=== PATIENT | male | born 1990 | race Caucasian/White ===

== ENCOUNTER 2025-01-17 15:01 | Emergency (ER) | payer OTHER ==
[2025-01-17 15:08] VITALS: TEMP 97.4
--- NOTE | 2025-01-17 15:42 | ED ---
General Adult HPI - General Source: patient, RN notes reviewed, old records reviewed Mode of arrival: ambulatory Limitations: no limitations <Jatinder Collins - Last Filed: 01/17/25 15:35> - General Source: patient, RN notes reviewed Mode of arrival: ambulatory Limitations: no limitations - History of Present Illness -: days(s) Severity scale (1-10): 0 Consistency: constant Improves with: none Worsens with: none Associated Symptoms: denies other symptoms Treatments Prior to Arrival: none <Jerry Tiwari - Last Filed: 01/17/25 17:46> - General Chief complaint: Abdominal Pain Stated complaint: abd pain, blood in urine Time Seen by Provider: 01/17/25 15:22 - History of Present Illness Initial comments: Patient is a 34-year-old male who presents emergency department complaining of abdominal pain. Presents from [facility] where he is present for alcohol as well as polysubstance abuse. He has been there since Saturday. That is when he began experiencing abdominal pain. Recently completed course of antibiotics for UTI. Is still having symptoms he states. His symptoms encomp ass dysuria that is a sharp sensation when he is urinating with some hematuria. Denies any pus or concern for STDs. Denies any diarrhea or constipation. He denies any flank or back pain but is complaining of epigastric abdominal discomfort since Saturday. Endorses a little bit of nausea but no significant emesis. No chest pain or shortness of breath. No fevers or chills. No abdominal surgeries in the past. Presents for further evaluation at this time.Patient does have a history of hepatitis C. States he was fully treated. (Jatinder Collins) This is a 34 male to ER for evaluation of hematuria with recent treatment for UTI (Jerry Tiwari) - Related Data Allergies Allergy/AdvReac Type Severity Reaction Status Date / Time No Known Allergies Allergy Verified 01/17/25 15:07 Review of Systems ROS Other: All systems not noted in ROS Statement are negative. <Jatinder Collins - Last Filed: 01/17/25 15:35> ROS Other: All systems not noted in ROS Statement are negative. <Jerry Tiwari - Last Filed: 01/17/25 17:46> ROS Statement: Those systems with pertinent positive or pertinent negative responses have been documented in the HPI. Review of Systems: CONST: Denies fever EYES: Denies blurry vision ENT: Denies nasal congestion C/V: Denies Chest pain RESP: Denies shortness of breath GI: Endorses abdominal pain : Endorses dysuria SKIN: Denies rash. MSK: Denies joint pain. NEURO: Denies headache (Jatinder Collins) Past Medical History Additional Past Medical History / Comment(s): HEP C (curred) History of Any Multi-Drug Resistant Organisms: None Reported Past Surgical History: No Surgical Hx Reported Past Psychological History: Depression Smoking Status: Current every day smoker Past Alcohol Use History: Daily Past Drug Use History: Cocaine, Marijuana, Opiates <Jatinder Collins - Last Filed: 01/17/25 15:35> General Exam Limitations: no limitations <Jatinder Collins - Last Filed: 01/17/25 15:35> General appearance: alert, in no apparent distress Head exam: Present: atraumatic, normocephalic, normal inspection Eye exam: Present: normal appearance, PERRL, EOMI. Absent: scleral icterus, conjunctival injection, periorbital swelling ENT exam: Present: normal exam, mucous membranes moist Neck exam: Present: normal inspection. Absent: tenderness, meningismus, lymphadenopathy Respiratory exam: Present: normal lung sounds bilaterally. Absent: respiratory distress, wheezes, rales, rhonchi, stridor Cardiovascular Exam: Present: regular rate, normal rhythm, normal heart sounds. Absent: systolic murmur, diastolic murmur, rubs, gallop, clicks GI/Abdominal exam: Present: soft, normal bowel sounds. Absent: distended, tenderness, guarding, rebound, rigid Extremities exam: Present: normal inspection, full ROM, normal capillary refill. Absent: tenderness, pedal edema, joint swelling, calf tenderness Back exam: Present: normal inspection Neurological exam: Present: alert, oriented X3, CN II-XII intact Psychiatric exam: Present: normal affect, normal mood Skin exam: Present: warm, dry, intact, normal color. Absent: rash <Jerry Tiwari - Last Filed: 01/17/25 17:46> - General Exam Comments Initial Comments: General: Appears in no acute distress. No evidence of alcohol withdrawals. HEAD: Normal with no signs of head trauma. EYES: EOMI ENT: Hearing grossly intact, normal oropharynx. RESPIRATORY: Clear breath sounds bilaterally. No wheezes, rales, or rhonchi. C/V: Regular rate and rhythm. S1 and S2 auscultated, no edema, peripheral pulses 2+ and intact throughout ABD: Abdomen soft, nondistended. Tender to palpation in the epigastric region. No guarding. No rebound tenderness. No peritoneal signs. No CVA tenderness to percussion. No flank tenderness. EXT: Normal range of motion, no obvious deformity SKIN: No rashes or lesions observed on exposed skin. NEURO: Alert and oriented x 4. (Jatinder Collins) Course <Jerry Tiwari - Last Filed: 01/17/25 17:46> Vital Signs 01/17/25 15:03 Temperature 97.4 F L Pulse Rate 84 Respiratory 18 Rate Blood Pressure 161/84 - Reevaluation(s) Reevaluation #1: 01/17/25 17:46 Medical records reviewed (Jerry Tiwari) Reevaluation #2: 01/17/25 17:46 Patient in no acute distress encouraged to increase oral intake, water (Jerry Tiwari) Reevaluation #3: 01/17/25 17:46 Patient informed of results questions answered (Jerry Tiwari) Medical Decision Making <Jatinder Collins - Last Filed: 01/17/25 15:35> - Lab Data Result diagrams: 01/17/25 16:03 01/17/25 16:03 - Radiology Data Radiology results: report reviewed (Ultrasound renals and bladder gallbladder CT abdomen pelvis negative for acute disease), image reviewed <Jerry Tiwari - Last Filed: 01/17/25 17:46> - Medical Decision Making Was pt. sent in by a medical professional or institution (, PA, DOCUMENT PROCESSOR, urgent care, hospital, or [facility]...) When possible be specific @ -Sent by her [facility] to evaluate for dysuria, epigastric abdominal pain. Did you speak to anyone other than the patient for history (EMS, parent, family, police, friend...)? What history was obtained from this source @ -No Did you review nursing and triage notes (agree or disagree)? Why? @ -I reviewed and agree with nursing and triage notes Were old charts reviewed (outside hosp., previous admission, EMS record, old EKG, old radiological studies, urgent care reports/EKG's, [facility] records)? Report findings @ -No old charts were reviewed Differential Diagnosis (chest pain, altered mental status, abdominal pain women, abdominal pain men, vaginal bleeding, weakness, fever, dyspnea, syncope, headache, dizziness, GI bleed, back pain, seizure, CVA, palpatations, mental health, musculoskeletal)? @ -Differential Abdominal Pain Men: Appendicitis, cholecystitis, diverticulosis, ischemic bowel, pancreatitis, hepatitis, UTI, gastroenteritis, AAA, incarcerated hernia, bowel obstruction, constipation, inflammatory bowel, hepatitis, peptic ulcer disease, splenic infarction, perforated viscus, testicular torsion, this is not meant to be an all-inclusive list EKG interpreted by me (3pts min.). @ -None done X-rays interpreted by me (1pt min.). @ -None done CT interpreted by me (1pt min.). @ -None none U/S interpreted by me (1pt. min.). @ -Pending What testing was considered but not performed or refused? (CT, X-rays, U/S, labs)? Why? @ -None What meds were considered but not given or refused? Why? @ -None Did you discuss the management of the patient with other professionals (professionals i.e. , PA, DOCUMENT PROCESSOR, lab, RT, psych nurse, health social work professor, campus director, teacher, recreation officer, director of casework)? Give summary @ -No Was smoking cessation discussed for >3mins.? @ -No Was critical care preformed (if so, how long)? @ -No Were there social determinants of health that impacted care today? How? (Homelessness, low income, unemployed, alcoholism, drug addiction, transportation, low edu. Level, literacy, decrease access to med. care, nursing home, rehab)? @ -No Was there de-escalation of care discussed even if they declined (Discuss DNR or withdrawal of care, Hospice)? DNR status @ -No What co-morbidities impacted this encounter? (DM, HTN, Smoking, COPD, CAD, Cancer, CVA, ARF, Chemo, Hep., AIDS, mental health diagnosis, sleep apnea, morbid obesity)? @ -Polysubstance abuse Was patient admitted / discharged? Hospital course, mention meds given and route, prescriptions, significant lab abnormalities, going to OR and other pertinent info. @ -Patient presents with dysuria for over a week as well as epigastric abdominal pain for 3 days. Vitals are within acceptable limits. Presents from [facility]. No evidence of alcohol withdrawals. Patient be symptomatically with IV fluids, Zofran, Protonix, Toradol. We will obtain abdominal laboratory study workup. He was in agreement this plan. Ultrasound of the gallbladder as well as kidneys will be obtained. At this time is the end of my shift. Patient signed out to [facility] emergency department physician Dr. Tiwari Pending results of workup. Undiagnosed new problem with uncertain prognosis? @ -No Drug Therapy requiring intensive monitoring for toxicity (Heparin, Nitro, Insulin, Cardizem)? @ -No Were any procedures done? @ -No (Jatinder Collins) 34 male hematuria failed outpatient UTI coming from [facility] patient will be placed on IV antibiotics given antibiotics to cover significant diagnostic causes of UTI and patient can be discharged home (Jerry Tiwari) - Lab Data Lab Results 01/17/25 01/17/25 01/17/25 Range/Units 16:03 16:03 16:03 WBC 4.26 L (4.50-10.00) 10*3/uL RBC 3.98 L (4.40-5.60) 10*6/uL Hgb 13.6 (13.0-17.0) g/dL Hct 37.5 L (39.6-50.0) % MCV 94.2 (80.0-97.0) fL MCH 34.2 H (27.0-32.0) pg MCHC 36.3 (32.0-37.0) g/dL Plt Count 348 (140-440) 10*3/uL MPV 9.2 L (9.5-12.2) fL Immature Gran % (Auto) 0.2 % Neutrophils % 54.4 % Lymphocytes % 31.5 % Monocytes % 10.8 % Eosinophils % 1.9 % Basophils % 1.2 % Immature Gran # 0.01 (0.00-0.04) 10*3/uL Neutrophils # 2.32 (1.80-7.70) 10*3/uL Lymphocytes # 1.34 (0.90-5.00) 10*3/uL Monocytes # 0.46 (0.20-1.00) 10*3/uL Eosinophils # 0.08 (0.04-0.35) 10*3/uL Basophils # 0.05 (0.00-0.10) 10*3/uL PT 10.7 (10.0-12.5) sec INR 1.0 (<1.2) APTT 22.9 (22.0-30.0) sec Sodium (137-145) mmol/L Potassium (3.5-5.1) mmol/L Chloride (98-107) mmol/L Carbon Dioxide (22-30) mmol/L Anion Gap mmol/L BUN (9-20) mg/dL Creatinine (0.66-1.25) mg/dL Est GFR (CKD-EPI)AfAm (>60 ml/min/1.73 sqM) Est GFR (CKD-EPI)NonAf (>60 ml/min/1.73 sqM) Glucose (74-99) mg/dL Plasma Lactic Acid Bob (0.7-2.0) mmol/L Calcium (8.4-10.2) mg/dL Total Bilirubin (0.2-1.3) mg/dL AST (17-59) U/L ALT (4-49) U/L Alkaline Phosphatase (38-126) U/L Creatine Kinase (55-170) U/L Total Protein (6.3-8.2) g/dL Albumin (3.5-5.0) g/dL Amylase (30-110) U/L Lipase (23-300) U/L Urine Color Yellow Urine Appearance Turbid (Clear) Urine pH 7.0 (5.0-8.0) Ur Specific [place] 1.017 (1.001-1.035) Urine Protein Trace H (Negative) Urine Glucose (UA) Negative (Negative) Urine Ketones Negative (Negative) Urine Blood Moderate H (Negative) Urine Nitrite Negative (Negative) Urine Bilirubin Negative (Negative) Urine Urobilinogen 2.0 (<2.0) mg/dL Ur Leukocyte Esterase Trace H (Negative) Urine RBC 97 H (0-5) /hpf Urine WBC 19 H (0-5) /hpf Amorphous Sediment Occasional H (None) /hpf Urine Mucus Rare H (None) /hpf Serum Alcohol mg/dL 04/20/25 04/20/25 04/20/25 Range/Units 16:03 16:03 16:03 WBC (4.50-10.00) 10*3/uL RBC (4.40-5.60) 10*6/uL Hgb (13.0-17.0) g/dL Hct (39.6-50.0) % MCV (80.0-97.0) fL MCH (27.0-32.0) pg MCHC (32.0-37.0) g/dL Plt Count (140-440) 10*3/uL MPV (9.5-12.2) fL Immature Gran % (Auto) % Neutrophils % % Lymphocytes % % Monocytes % % Eosinophils % % Basophils % % Immature Gran # (0.00-0.04) 10*3/uL Neutrophils # (1.80-7.70) 10*3/uL Lymphocytes # (0.90-5.00) 10*3/uL Monocytes # (0.20-1.00) 10*3/uL Eosinophils # (0.04-0.35) 10*3/uL Basophils # (0.00-0.10) 10*3/uL PT (10.0-12.5) sec INR (<1.2) APTT (22.0-30.0) sec Sodium 137 (137-145) mmol/L Potassium 3.8 (3.5-5.1) mmol/L Chloride 99 (98-107) mmol/L Carbon Dioxide 32 H (22-30) mmol/L Anion Gap 6 mmol/L BUN 9 (9-20) mg/dL Creatinine 0.65 L (0.66-1.25) mg/dL Est GFR (CKD-EPI)AfAm >90 (>60 ml/min/1.73 sqM) Est GFR (CKD-EPI)NonAf >90 (>60 ml/min/1.73 sqM) Glucose 106 H (74-99) mg/dL Plasma Lactic Acid Bob 1.4 (0.7-2.0) mmol/L Calcium 9.6 (8.4-10.2) mg/dL Total Bilirubin 0.2 (0.2-1.3) mg/dL AST 40 (17-59) U/L ALT 65 H (4-49) U/L Alkaline Phosphatase 77 (38-126) U/L Creatine Kinase 109 (55-170) U/L Total Protein 6.1 L (6.3-8.2) g/dL Albumin 3.7 (3.5-5.0) g/dL Amylase 39 (30-110) U/L Lipase 120 (23-300) U/L Urine Color Urine Appearance (Clear) Urine pH (5.0-8.0) Ur Specific [place] (1.001-1.035) Urine Protein (Negative) Urine Glucose (UA) (Negative) Urine Ketones (Negative) Urine Blood (Negative) Urine Nitrite (Negative) Urine Bilirubin (Negative) Urine Urobilinogen (<2.0) mg/dL Ur Leukocyte Esterase (Negative) Urine RBC (0-5) /hpf Urine WBC (0-5) /hpf Amorphous Sediment (None) /hpf Urine Mucus (None) /hpf Serum Alcohol <10 mg/dL Disposition <Jatinder Collins - Last Filed: 01/17/25 15:35> Is patient prescribed a controlled substance at d/c from ED?: No Time of Disposition: 17:35 <Jerry Tiwari - Last Filed: 01/17/25 17:46> Clinical Impression: Abdominal pain, UTI (urinary tract infection), Hemorrhagic cystitis Disposition: HOME SELF-CARE Condition: Good Instructions (If sedation given, give patient instructions): Hematuria (ED), Urinary Tract Infection in Men (ED) Prescriptions: Doxycycline [Vibramycin] 100 mg PO BID 7 Days #14 capsule Referrals: None,Stated [Primary Care Provider] - 1-2 days
[2025-01-17] MEDS: KETOROLAC 15 MG/ML 1 ML VIAL IVP STA (15:56)
[2025-01-17] MEDS: PANTOPRAZOLE 40 MG/10 ML VIAL IVP STA (15:56)
[2025-01-17] MEDS: SODIUM CHLORIDE 0.9% 1,000 ML IV ONE ×2 (15:56→17:57)
[2025-01-17] MEDS: ONDANSETRON 4 MG/2 ML VIAL IVP STA (15:56)
[2025-01-17 16:12] LABS: Basophils # (A) 0.05 10*3/uL (0.00-0.10); Basophils % (A) 1.2 %; Eosinophils # (A) 0.08 10*3/uL (0.04-0.35); Eosinophils % (A) 1.9 %; HCT 37.5 % (39.6-50.0); HGB 13.6 g/dL (13.0-17.0); Lymphocytes # (A) 1.34 10*3/uL (0.90-5.00); Lymphocytes % (A) 31.5 %; MCH 34.2 pg (27.0-32.0); MCHC 36.3 g/dL (32.0-37.0); MCV 94.2 fL (80.0-97.0); Mean Platelet Volume 9.2 fL (9.5-12.2); Monocytes # (A) 0.46 10*3/uL (0.20-1.00); Monocytes % (A) 10.8 %; Neutrophils # (A) 2.32 10*3/uL (1.80-7.70); Neutrophils % (A) 54.4 %; Platelet Count 348 10*3/uL (140-440); RBC 3.98 10*6/uL (4.40-5.60); RDW 12.9 % (11.5-14.5); WBC 4.26 10*3/uL (4.50-10.00)
[2025-01-17 16:17] LABS: Amorphous Sediment,Urine Occasional /hpf; Appearance,Urine Turbid (Clear); Bilirubin,Urine Negative (Negative); Blood,Urine Moderate (Negative); Color,Urine Yellow; Glucose,Urine (UA) Negative (Negative); Ketones,Urine Negative (Negative); Leukocyte Esterase,Urine Trace (Negative); Mucus,Urine Rare /hpf; Nitrite,Urine Negative (Negative); Protein,Urine Trace (Negative); RBC,Urine 97 /hpf (0-5); Specific Gravity,Urine 1.017 (1.001-1.035); WBC,Urine 19 /hpf (0-5)
[2025-01-17 16:23] LABS: Partial Thromboplastin Time 22.9 sec (22.0-30.0); Prothrombin Time 10.7 sec (10.0-12.5)
[2025-01-17 16:26] LABS: ALT 65 U/L (4-49); AST 40 U/L (17-59); African American GFR (CKD) >90 (>60 ml/min/1.73 sqM); Albumin 3.7 g/dL (3.5-5.0); Alcohol <10 mg/dL; Alkaline Phosphatase 77 U/L (38-126); Amylase 39 U/L (30-110); Anion Gap 6 mmol/L; Blood Urea Nitrogen 9 mg/dL (9-20); Calcium 9.6 mg/dL (8.4-10.2); Carbon Dioxide 32 mmol/L (22-30); Chloride 99 mmol/L (98-107); Glucose 106 mg/dL (74-99); Lipase 120 U/L (23-300); Non-African American GFR(CKD) >90 (>60 ml/min/1.73 sqM); Potassium 3.8 mmol/L (3.5-5.1); Sodium 137 mmol/L (137-145); Total Bilirubin 0.2 mg/dL (0.2-1.3); Total Protein 6.1 g/dL (6.3-8.2)
--- NOTE | 2025-01-17 17:15 | US ---
EXAMINATION TYPE: US abd limited kidneys/bladder DATE OF EXAM: 01/17/2025 COMPARISON: NONE CLINICAL INDICATION: Male, 34 years old with history of epigastric abd pain; abd pain with gross amish turia x 3 days, patient just went to rehab for etoh 2 days ago TECHNIQUE: Grayscale and color Doppler imaging of the right upper quadrant including the kidneys and urinary bladder. FINDINGS: EXAM MEASUREMENTS: Liver Length: 16.1 cm Gallbladder Wall: 0.3 cm CBD: 0.3 cm Right Kidney: 9.4 x 5.2 x 5.1 cm Left Kidney: 12.8 x 4.4 x 4.7 cm Pancreas: wnl Liver: Increased parenchymal echogenicity. Gallbladder: wnl CBD: wnl Right Kidney: wnl Left Kidney: Likely duplicated collecting system without evidence of hydronephrosis. Bladder: wnl IMPRESSION: 1. No evidence of acute obstructive uropathy. 2. Increased parenchymal echogenicity suggesting steatosis. [facility], , 01/17/2025 5:12 PM
--- NOTE | 2025-01-17 17:39 | CT ---
EXAMINATION TYPE: CT abdomen pelvis wo con DATE OF EXAM: 01/17/2025 5:28 PM COMPARISON: Same day ultrasound study. CLINICAL INDICATION: Male, 34 years old with history of pain; Pt comes in today with c/o possible kid zachary stone., with ABD pain. Pt states last weekend he started urinating blood. TECHNIQUE: Axial CT abdomen pelvis wo con;Sagittal and coronal reformats were created on a separate workstation. CT DLP: 370.1 mGycm, Automated exposure control for dose reduction was used. FINDINGS: LOWER CHEST: Unremarkable ABDOMEN LIVER: Unremarkable GALLBLADDER AND BILE DUCTS: Unremarkable. PANCREAS: Unremarkable. SPLEEN: Unremarkable. ADRENAL GLANDS: Unremarkable. KIDNEYS AND URETERS: No evidence of hydronephrosis or renal calculus. The ureters are unremarkable. PELVIS BLADDER: Circumferential urinary bladder wall thickening and mild adjacent periventricular stranding. REPRODUCTIVE: Unremarkable. ABDOMEN & PELVIS STOMACH AND BOWEL: Stomach and duodenum are unremarkable. Appendix unremarkable. No evidence of bowel obstruction. PERITONEUM/RETROPERITONEUM: No evidence of pneumoperitoneum or free fluid. VASCULATURE: No evidence of aortic aneurysm. MUSCULOSKELETAL: No acute osseous abnormalities LYMPH NODES: No gross evidence for lymphadenopathy. SOFT TISSUE/ABDOMINAL WALL: Unremarkable IMPRESSION: Mild circumferential urinary bladder wall thickening with mild adjacent perivesicular stranding. Isaias mmend clinical correlation with urinalysis for cystitis. Otherwise, no evidence of acute obstructive uropathy or other acute abnormality in the abdomen/pelvis. [facility], , 01/17/2025 5:36 PM
[2025-01-17] MEDS: AZITHROMYCIN 500 MG TAB PO STA (17:56)
[2025-01-17] MEDS: cefTRIAXone IN SWFI 1,000 MG/10 ML SYRINGE IVP STA (17:56)
[2025-01-17] MEDS: DOXYCYCLINE 100 MG TABLET PO ONE (17:56)
[2025-01-17 18:47] VITALS: BP 155/84; PULSE 82; RESP 20
[2025-01-19 11:19] LABS: N. gonorrhoeae,PCR Negative (Negative)
== END 2025-01-17 18:57 | disposition home or self-care (01) ==
LOC: EC 15:01
DX: N30.91 Cystitis, unspecified with hematuria (principal); R10.9 Unspecified abdominal pain; F17.200 Nicotine dependence, unspecified, uncomplicated
CPT/HCPCS: 36415; 80053; 82150; 82550; 83605; 83690; 85025; 85610; 85730; 81001; 87491; 87591; 76705; 76770; 74176; 99284; 96374; 96375; 96361; G0480; J2405; J0696; J1885; J2470; 80320